=== PATIENT | male | born 1990 | race Caucasian/White ===

== ENCOUNTER 2023-03-18 09:17 | Emergency (ER) | payer OTHER ==
[2023-03-18] MEDS ORDERED: Sodium Chloride 0.9% 1,000 ML IV ONE (09:18)
[2023-03-18] MEDS ORDERED: Ketorolac 30 MG/ML SDV IVPUSH ONE (09:18)
[2023-03-18 09:33] LABS: BASOPHILS PERCENT AUTO 0.5 % (0.0-1.5); EOSINOPHILS ABSOLUTE AUTO 0.2 K/uL (0.0-0.7); EOSINOPHILS PERCENT AUTO 4.1 % (0.0-7.0); HEMATOCRIT 46.7 % (38.0-50.0); HEMOGLOBIN 16.2 g/dL (13.0-17.0); LYMPHOCYTES ABSOLUTE AUTO 1.6 K/uL (0.6-2.4); LYMPHOCYTES PERCENT AUTO 35.5 % (16.0-40.0); MEAN CORPUSCULAR HEMOGLOBIN 30.5 pg (27.0-32.0); MEAN CORPUSCULAR HGB CONC 34.7 g/dL (31.0-37.0); MEAN CORPUSCULAR VOLUME 87.9 fL (80.0-98.0); MONOCYTES ABSOLUTE AUTO 0.2 K/uL (0.0-0.8); MONOCYTES PERCENT AUTO 5.2 % (0.0-15.0); NEUTROPHILS ABSOLUTE AUTO 2.4 K/uL (1.4-5.7); NEUTROPHILS PERCENT AUTO 54.7 % (48.0-80.0); NRBC ABSOLUTE 0 K/uL; PLATELET COUNT,PLT 177 K/uL (150-400); RED BLOOD CELL COUNT 5.31 M/uL (4.50-5.90); WHITE BLOOD CELL COUNT,WBC 4.42 K/uL (4.0-11.0)
[2023-03-18 10:10] LABS: A/G RATIO 1.3 (0.9-1.6); BILIRUBIN TOTAL 0.5 mg/dL (0.2-1.0); CALCIUM 8.6 mg/dL (8.5-10.1); CREATININE 1.6 mg/dL (0.8-1.3); EST CRCL DRUG DOSING (CG) 61.97 mL/min; POTASSIUM,K 4.2 mmol/L (3.5-5.1)
[2023-03-18] MEDS ORDERED: Iopamidol 755 Mg/ML 100 ML Bottle IVPUSH ONE (17:39)
[2023-03-18] MEDS ORDERED: Iopamidol 755 MG/ML 500 ML Multipack Bottle IVPUSH STA (17:44)
== END 2023-03-18 10:44 | disposition home or self-care (01) ==
LOC: MW.ED 09:17
DX: S13.4XXA Sprain of ligaments of cervical spine, initial encounter (principal); V49.40XA Driver injured in collision with unspecified motor vehicles in traffic accident, initial encounter; Y92.410 Unspecified street and highway as the place of occurrence of the external cause
CPT/HCPCS: 36415; 71260; 74177; 80053; 83690; 84484; 85025; 96374; 99285; J1885; J7030; Q9967; 99284